=== PATIENT | male | born 1985 | race Caucasian/White ===

== ENCOUNTER 2023-03-02 07:42 | Inpatient (IN) ==
[2023-03-02] MEDS ORDERED: SODIUM CHLORIDE 0.9% 1000ML 1,000 ML IV STA (07:58)
[2023-03-02] MEDS ORDERED: MoRPHine SULFATE 4 MG/ML 1 ML CARP\\VIAL IV STA (07:58)
[2023-03-02] MEDS ORDERED: ONDANSETRON INJ 2 MG/ML 2 ML VIAL IV STA (07:58)
[2023-03-02] MEDS ORDERED: KETOROLAC TROMETHAMINE 15 MG/ML VIAL IV STA (07:58)
[2023-03-02] MEDS ORDERED: HYDROmorphone INJ 0.5 MG/0.5 ML SYR IV STA ×4 (08:10→16:52)
[2023-03-02 08:24] LABS: iSTAT Creatinine 1.1 mg/dl (0.6-1.3); iSTAT Ionized Calcium 1.17 mmol/l (1.12-1.32); iSTAT Potassium 4.1 mmol/L (3.3-5.0)
--- NOTE | 2023-03-02 08:29 | Emergency Department Note ---
ED Provider Note History of Present Illness Chief Complaint: Abdominal Pain Stated Complaint: ABDOMINAL PAIN, Time Seen by Provider: 03/02/23 07:52 37-year-old male who presents emergency department with complaint of severe central abdominal pain. The patient reports that he noticed discomfort approximately 3 hours ago, and has significantly worsened over the past 12 hours. The patient also reports nausea, vomiting and a small amount of watery diarrhea. The patient reports that any attempted fluid or food intake causes immediate vomiting. The patient denies prior history of GI issues or abdominal surgeries. He denies any other recent infections. He is unable to keep any Motrin or Tylenol down and rates his discomfort a 9 out of 10. The patient denies any urinary symptoms. Home Medications Medication Instructions Recorded Confirmed Type No Known Home Medications 03/02/23 03/02/23 History Allergies Allergy/AdvReac Type Severity Reaction Status Date / Time bee venom protein (honey bee) Allergy SWELLING Unverified 03/02/23 09:39 cat dander Allergy Hives Unverified 03/02/23 09:33 dog dander Allergy Hives Unverified 03/02/23 09:33 morphine AdvReac Hives Unverified 03/02/23 09:33 oxycodone [From OxyContin] AdvReac Hives Unverified 03/02/23 09:33 Past Med/Surg History Medical History No significant medical problems Surgical History History of hernia surgery Social History Smoking Status: Never smoker Preferred Language: Omani Feels Safe at Home: Yes Physical Exam Vital Signs Vital Signs - 24 hr 03/02/23 07:43 03/02/23 08:36 03/02/23 09:13 Temperature 36.6 C Temperature Source Temporal Artery Scan Pulse Rate 86 Pulse Rate [Finger] 78 78 Pulse Rhythm [Finger] Pulse Strength [Finger] Respiratory Rate 18 18 18 Respiratory Effort / Characteristics Non-Labored Spontaneous Respiratory Depth Normal Respiratory Pattern Regular Blood Pressure 115/80 Blood Pressure [Right Arm] 144/71 H 100/79 Blood Pressure Mean 91 Blood Pressure Mean [Right Arm] 95 86 Blood Pressure Position [Right Arm] Pulse Oximetry 98 93 96 Oxygen Delivery Method Room Air Room Air Oxygen Flow Rate Sepsis Recent Fever Within 48 Hours No Sepsis New/Unexplained Change in Mental Status N/A Sepsis Action Taken by Nursing No Action Required 03/02/23 09:44 03/02/23 10:31 03/02/23 10:48 Temperature 36.8 C Temperature Source Oral Pulse Rate 78 Pulse Rate [Finger] 80 93 H Pulse Rhythm [Finger] Regular Pulse Strength [Finger] Normal Respiratory Rate 18 18 18 Respiratory Effort / Characteristics Non-Labored Spontaneous Respiratory Depth Normal Respiratory Pattern Regular Blood Pressure 150/82 H Blood Pressure [Right Arm] 135/72 144/74 H Blood Pressure Mean Blood Pressure Mean [Right Arm] 93 97 Blood Pressure Position [Right Arm] Lying Pulse Oximetry 94 98 94 Oxygen Delivery Method Room Air Room Air Room Air Oxygen Flow Rate Sepsis Recent Fever Within 48 Hours Sepsis New/Unexplained Change in Mental Status Sepsis Action Taken by Nursing 03/02/23 12:49 03/02/23 12:55 03/02/23 13:05 Temperature 36.6 C Temperature Source Temporal Artery Scan Pulse Rate Pulse Rate [Finger] 79 81 80 Pulse Rhythm [Finger] Regular Regular Regular Pulse Strength [Finger] Normal Normal Normal Respiratory Rate 17 17 17 Respiratory Effort / Characteristics Non-Labored Spontaneous Non-Labored Spontaneous Non-Labored Spontaneous Respiratory Depth Normal Normal Normal Respiratory Pattern Regular Regular Regular Blood Pressure Blood Pressure [Right Arm] 139/81 142/81 H 167/94 H Blood Pressure Mean Blood Pressure Mean [Right Arm] 100 101 118 Blood Pressure Position [Right Arm] Semi-fowlers Semi-fowlers Semi-fowlers Pulse Oximetry 100 100 100 Oxygen Delivery Method Oxymask Oxymask Oxymask Oxygen Flow Rate 5 5 5 Sepsis Recent Fever Within 48 Hours Sepsis New/Unexplained Change in Mental Status Sepsis Action Taken by Nursing 03/02/23 13:15 03/02/23 13:25 03/02/23 13:35 Temperature Temperature Source Pulse Rate Pulse Rate [Finger] 82 85 94 H Pulse Rhythm [Finger] Regular Regular Regular Pulse Strength [Finger] Normal Normal Normal Respiratory Rate 14 15 15 Respiratory Effort / Characteristics Non-Labored Spontaneous Non-Labored Spontaneous Non-Labored Spontaneous Respiratory Depth Normal Normal Normal Respiratory Pattern Regular Regular Regular Blood Pressure Blood Pressure [Right Arm] 153/96 H 138/92 138/92 Blood Pressure Mean Blood Pressure Mean [Right Arm] 115 107 107 Blood Pressure Position [Right Arm] Semi-fowlers Semi-fowlers Semi-fowlers Pulse Oximetry 100 99 100 Oxygen Delivery Method Oxymask Oxymask Oxymask Oxygen Flow Rate 3 2 2 Sepsis Recent Fever Within 48 Hours Sepsis New/Unexplained Change in Mental Status Sepsis Action Taken by Nursing 03/02/23 13:45 03/02/23 13:55 03/02/23 14:05 Temperature Temperature Source Pulse Rate Pulse Rate [Finger] 88 94 H 98 H Pulse Rhythm [Finger] Regular Regular Regular Pulse Strength [Finger] Normal Normal Normal Respiratory Rate 14 15 15 Respiratory Effort / Characteristics Non-Labored Spontaneous Non-Labored Spontaneous Non-Labored Spontaneous Respiratory Depth Normal Normal Normal Respiratory Pattern Regular Regular Regular Blood Pressure Blood Pressure [Right Arm] 137/79 125/78 128/66 Blood Pressure Mean Blood Pressure Mean [Right Arm] 98 93 86 Blood Pressure Position [Right Arm] Semi-fowlers Semi-fowlers Semi-fowlers Pulse Oximetry 98 98 97 Oxygen Delivery Method Oxymask Nasal Cannula Nasal Cannula Oxygen Flow Rate 2 2 2 Sepsis Recent Fever Within 48 Hours Sepsis New/Unexplained Change in Mental Status Sepsis Action Taken by Nursing 03/02/23 14:15 03/02/23 14:25 03/02/23 14:35 Temperature 36.5 C 36.5 C Temperature Source Temporal Artery Scan Temporal Artery Scan Pulse Rate Pulse Rate [Finger] 91 H 92 H 92 H Pulse Rhythm [Finger] Regular Regular Regular Pulse Strength [Finger] Normal Normal Normal Respiratory Rate 13 14 14 Respiratory Effort / Characteristics Non-Labored Spontaneous Non-Labored Spontaneous Non-Labored Spontaneous Respiratory Depth Normal Normal Normal Respiratory Pattern Regular Regular Regular Blood Pressure Blood Pressure [Right Arm] 124/66 111/64 112/70 Blood Pressure Mean Blood Pressure Mean [Right Arm] 85 79 84 Blood Pressure Position [Right Arm] Semi-fowlers Semi-fowlers Semi-fowlers Pulse Oximetry 95 96 96 Oxygen Delivery Method Nasal Cannula Nasal Cannula Nasal Cannula Oxygen Flow Rate 2 2 2 Sepsis Recent Fever Within 48 Hours Sepsis New/Unexplained Change in Mental Status Sepsis Action Taken by Nursing CONSTITUTIONAL: Healthy and well nourished. Alert and oriented X 3. Patient appears in severe discomfort. HEENT: No scleral icterus or conjunctival injection/pallor. Mucous membranes are dry. RESPIRATORY: Clear to auscultation bilaterally with no wheezing, crackles, rhonchi or stridor. CARDIOVASCULAR: Regular rate and rhythm with no murmurs, rubs or gallops. GASTROINTESTINAL: Bowel sounds present in all quadrants. Patient has notable central abdominal tenderness to palpation, with other generalized tenderness to palpation throughout the entire abdominal region. Negative CVA tenderness. No abdominal rigidity or rebound. INTEGUMENTARY: No rash or other significant dermatologic conditions noted. HEMATOLOGIC: No ecchymosis or petechiae. PSYCHIATRIC: Positive affect. NEUROLOGIC: No focal neurologic deficits noted. Course Course Patient history and physical exam were performed. Nurses notes were reviewed. Vital signs were reviewed and were normal. IV access was established, and labs were drawn. The patient was hydrated with a liter normal saline, and administered IV Dilaudid and Zofran for pain. Review of labs shows a moderate leukocytosis with left shift. CMP was otherwise grossly normal. LFTs and lipase were normal. Lactate level was also normal. Urinalysis does not show evidence for hematuria or signs of infection. COVID-[address] with IV contrast of the abdomen and pelvis shows a high-grade small bowel obstruction, with a concerning 1.8 cm soft tissue mass at the transition site. The patient did require multiple rounds of IV Dilaudid because of persistent pain. The case was also discussed with Dr. Gaming, ED team physician, who recommended surgical consultation. The case was then further discussed with Dr. Darryl Chan, general surgeon on-call, who came to the emergency department and will take the patient to the OR for further surgical evaluation. Please see his dictation for further treatment and final disposition. Administered Medications Discontinued Medications Hydromorphone HCl (Hydromorphone Inj 0.5 Mg/0.5 Ml Syr) 0.5 mg IV NOW STA Stop: 03/02/23 08:11 Last Admin: 03/02/23 08:18 Dose: 0.5 mg Documented By: MARGOT Hydromorphone HCl (Hydromorphone Inj 0.5 Mg/0.5 Ml Syr) 0.5 mg IV NOW STA Stop: 03/02/23 08:44 Last Admin: 03/02/23 08:48 Dose: 0.5 mg Documented By: MARGOT Hydromorphone HCl (Hydromorphone Inj 0.5 Mg/0.5 Ml Syr) 0.5 mg IV NOW STA Stop: 03/02/23 09:05 Last Admin: 03/02/23 09:09 Dose: 0.5 mg Documented By: MARGOT Hydromorphone HCl (Hydromorphone Inj 1 Mg/Ml Syringe) 0.25 mg IV Q5M PRN PRN Reason: PACU Use Only-Pain Stop: 03/02/23 19:16 Last Admin: 03/02/23 14:11 Dose: 0.25 mg Documented By: Admin: 03/02/23 14:06 Dose: 0.25 mg Documented By: Admin: 03/02/23 14:01 Dose: 0.25 mg Documented By: Admin: 03/02/23 13:56 Dose: 0.25 mg Documented By: Admin: 03/02/23 13:51 Dose: 0.25 mg Documented By: Admin: 03/02/23 13:46 Dose: 0.25 mg Documented By: Admin: 03/02/23 13:41 Dose: 0.25 mg Documented By: Admin: 03/02/23 13:36 Dose: 0.25 mg Documented By: Admin: 03/02/23 13:31 Dose: 0.25 mg Documented By: Admin: 03/02/23 13:26 Dose: 0.25 mg Documented By: Admin: 03/02/23 13:21 Dose: 0.25 mg Documented By: Admin: 03/02/23 13:16 Dose: 0.25 mg Documented By: Admin: 03/02/23 13:11 Dose: 0.25 mg Documented By: Admin: 03/02/23 13:06 Dose: 0.25 mg Documented By: Admin: 03/02/23 13:01 Dose: 0.25 mg Documented By: Admin: 03/02/23 12:56 Dose: 0.25 mg Documented By: GRUPO Sodium Chloride (Nss 1000ml) 1,000 mls @ 999 mls/hr IV .Q1H1M STA Stop: 03/02/23 08:58 Last Infusion: 03/02/23 09:31 Dose: 0 mls/hr Documented By: Admin: 03/02/23 08:19 Dose: 999 mls/hr Documented By: MARGOT Cefoxitin Sodium 2,000 mg/ (Dextrose) 60 mls @ 100 mls/hr IV ONE STA Stop: 03/02/23 11:29 Last Admin: 03/02/23 11:19 Dose: 100 mls/hr Documented By: MATT Ioversol (Optiray 350 100ml) 89 ml IV ONCE ONE Stop: 03/02/23 08:34 Last Admin: 03/02/23 08:33 Dose: 89 ml Documented By: POWER Ketorolac Tromethamine (Ketorolac Tromethamine 15 Mg/Ml Vial) 10 mg IV NOW STA Stop: 03/02/23 07:59 Last Admin: 03/02/23 08:18 Dose: 10 mg Documented By: MARGOT Ketorolac Tromethamine (Ketorolac 30 Mg/Ml Vial) 30 mg IV ONCE PRN PRN Reason: PACU Use Only-Pain Stop: 03/02/23 19:16 Last Admin: 03/02/23 12:56 Dose: 30 mg Documented By: GRUPO Meperidine HCl (Meperidine Hcl 25 Mg/Ml Carp/Vial) 25 mg IV Q5M PRN PRN Reason: Surgi Pain/Chills/Rigors Stop: 03/02/23 19:16 Last Admin: 03/02/23 13:25 Dose: 25 mg Documented By: GRUPO Morphine Sulfate (Morphine Sulfate 4 Mg/Ml 1 Ml Carp\Vial) 6 mg IV NOW STA Stop: 03/02/23 07:59 Last Admin: 03/02/23 08:19 Dose: Not Given Documented By: MARGOT Ondansetron HCl (Ondansetron Inj 2 Mg/Ml 2 Ml Vial) 4 mg IV NOW STA Stop: 03/02/23 07:59 Last Admin: 03/02/23 08:18 Dose: 4 mg Documented By: MARGOT Medical Decision Making Medical Records Attestation: I reviewed the patient's medical records. Home Medications was personally reviewed by me Laboratory Data Attestation: I reviewed the patient's lab results. 03/02/23 08:00 03/02/23 08:00 Lab Results 03/02/23 03/02/23 03/02/23 Range/Units 07:50 08:00 08:00 WBC 14.84 H (4.8-10.8) K/ul RBC 6.01 (4.70-6.10) M/uL Hgb 18.0 (14.0-18.0) g/dl POC Hgb (14.0-18.0) g/dl Hct 52.9 H (42.0-52.0) % POC Hct (42-52) % MCV 88.0 (80.0-100.0) fL MCH 30.0 (25.0-34.0) pg MCHC 34.0 (32.0-36.0) g/dL RDW Std Deviation 40.5 (36.4-46.3) fL RDW Coeff of Rafaela 12.5 (11.5-14.5) % Plt Count 263 (130-400) K/uL MPV 10.5 (9.4-12.4) fL Immature Gran % (Auto) 0.7 % Neut % (Auto) 85.8 % Lymph % (Auto) 6.5 % Meade % (Auto) 6.3 % Eos % (Auto) 0.4 % Baso % (Auto) 0.3 % Neut # (Auto) 12.74 H (1.40-6.50) K/uL Lymph # (Auto) 0.96 L (1.2-3.4) K/uL Meade # (Auto) 0.94 H (0.11-0.59) K/uL Eos # (Auto) 0.06 (0-0.50) K/uL Baso # (Auto) 0.04 (0-0.2) K/uL Immature Gran # (Auto) 0.10 (0.01-0.20) K/uL POC Sodium (135-144) mmol/L Sodium 137 (136-145) mmol/L POC Potassium (3.3-5.0) mmol/L Potassium 4.2 (3.5-5.1) mmol/L POC Chloride (101-112) mmol/L Chloride 97 L (98-107) mmol/L Carbon Dioxide 32 (21-32) mmol/L POC Total CO2 (24-31) mmol/L Anion Gap 8 (3-11) POC Anion Gap (16-25) mmol/L POC BUN (7-18) mg/dl BUN 15 (6-23) mg/dl Creatinine 1.13 (0.6-1.4) mg/dl POC Creatinine (0.6-1.3) mg/dl Est Cr Clr Drug Dosing 110.9 ml/min Est GFR ( Amer) 97.1 ml/min Est GFR (Non-Af Amer) 83.7 ml/min BUN/Creatinine Ratio 13.3 (10-20) Glucose 103 H (70-99(Fasting)) mg/dl POC Glucose (other) (70-99) mg/dl Lactate (0.4-2.0) mmol/L Calcium 9.9 (8.6-10.3) mg/dl POC Ioniz Calcium Tin (1.12-1.32) mmol/l Total Bilirubin 1.0 (0.2-1.0) mg/dl AST 20 (13-39) U/L ALT 21 (7-52) U/L Alkaline Phosphatase 59 (34-104) U/L Total Protein 8.1 (6.0-8.3) gm/dl Albumin 4.9 (3.4-5.0) gm/dl Globulin 3.2 (2.5-4.0) gm/dl Albumin/Globulin Ratio 1.5 (0.9-2) Lipase 14 (11-82) U/L Urine Color Dark Yellow Urine Appearance Turbid A (Clear) Urine pH >= 9.0 H (4.5-7.5) Ur Specific [place] 1.027 (1.000-1.030) Urine Protein 1+ H (Negative) Urine Glucose (UA) Negative (Negative) Urine Ketones Negative (Negative) Urine Blood Negative (Negative) Urine Nitrite Negative (Negative) Urine Bilirubin Negative (Negative) Urine Urobilinogen Negative (Negative) Ur Leukocyte Esterase Trace H (Negative) Urine WBC (Auto) 0 (0-5) /hpf Urine RBC (Auto) 0-4 (0-4) /hpf U Hyaline Cast (Auto) 1-5 (0-5) /lpf U Epithel Cells (Auto) 10-20 H (0-5) /lpf Urine Bacteria (Auto) Negative (Negative) SARS-CoV-2, RNA, NAAT (NEGATIVE) 03/02/23 03/02/23 03/02/23 Range/Units 08:10 09:00 09:10 WBC (4.8-10.8) K/ul RBC (4.70-6.10) M/uL Hgb (14.0-18.0) g/dl POC Hgb 19.0 H (14.0-18.0) g/dl Hct (42.0-52.0) % POC Hct 56 H (42-52) % MCV (80.0-100.0) fL MCH (25.0-34.0) pg MCHC (32.0-36.0) g/dL RDW Std Deviation (36.4-46.3) fL RDW Coeff of Rafaela (11.5-14.5) % Plt Count (130-400) K/uL MPV (9.4-12.4) fL Immature Gran % (Auto) % Neut % (Auto) % Lymph % (Auto) % [place] % (Auto) % Eos % (Auto) % Baso % (Auto) % Neut # (Auto) (1.40-6.50) K/uL Lymph # (Auto) (1.2-3.4) K/uL [place]ade # (Auto) (0.11-0.59) K/uL Eos # (Auto) (0-0.50) K/uL Baso # (Auto) (0-0.2) K/uL Immature Gran # (Auto) (0.01-0.20) K/uL POC Sodium 139 (135-144) mmol/L Sodium (136-145) mmol/L POC Potassium 4.1 (3.3-5.0) mmol/L Potassium (3.5-5.1) mmol/L POC Chloride 95 L (101-112) mmol/L Chloride (98-107) mmol/L Carbon Dioxide (21-32) mmol/L POC Total CO2 31 (24-31) mmol/L Anion Gap (3-11) POC Anion Gap 19.0 (16-25) mmol/L POC BUN 16 (7-18) mg/dl BUN (6-23) mg/dl Creatinine (0.6-1.4) mg/dl POC Creatinine 1.1 (0.6-1.3) mg/dl Est Cr Clr Drug Dosing ml/min Est GFR ( Amer) ml/min Est GFR (Non-Af Amer) ml/min BUN/Creatinine Ratio (10-20) Glucose (70-99(Fasting)) mg/dl POC Glucose (other) 114 H (70-99) mg/dl Lactate 1.1 (0.4-2.0) mmol/L Calcium (8.6-10.3) mg/dl POC Ioniz Calcium Tin 1.17 (1.12-1.32) mmol/l Total Bilirubin (0.2-1.0) mg/dl AST (13-39) U/L ALT (7-52) U/L Alkaline Phosphatase (34-104) U/L Total Protein (6.0-8.3) gm/dl Albumin (3.4-5.0) gm/dl Globulin (2.5-4.0) gm/dl Albumin/Globulin Ratio (0.9-2) Lipase (11-82) U/L Urine Color Urine Appearance (Clear) Urine pH (4.5-7.5) Ur Specific [place] (1.000-1.030) Urine Protein (Negative) Urine Glucose (UA) (Negative) Urine Ketones (Negative) Urine Blood (Negative) Urine Nitrite (Negative) Urine Bilirubin (Negative) Urine Urobilinogen (Negative) Ur Leukocyte Esterase (Negative) Urine WBC (Auto) (0-5) /hpf Urine RBC (Auto) (0-4) /hpf U Hyaline Cast (Auto) (0-5) /lpf U Epithel Cells (Auto) (0-5) /lpf Urine Bacteria (Auto) (Negative) SARS-CoV-2, RNA, NAAT NEGATIVE (NEGATIVE) Imaging Data Attestation: I personally reviewed and interpreted this imaging study as follows: My Impression: My interpretation of the CT with IV contrast of the abdomen and pelvis shows evidence for high-grade small bowel obstruction, with transition point within the middle of the abdomen. Radiologist also is concerned for a 1.8 cm soft tissue density within the central mesentery, possibly representing a decompressed loop of small bowel or possibly a small bowel mass. No abdominal free air or appendicitis appreciated. Radiologist report was also reviewed with concurrence. Radiologist's Impression: Abdomen/Pelvis CT 03/02/23 07:[address] WITH IV CONTRAST CT DOSE: 533.52 mGy.cm HISTORY: Severe central abd pain x 12h TECHNIQUE: Multiaxial CT images of the abdomen and pelvis were performed f ollowing the use of intravenous contrast. A dose lowering technique was utilized adhering to the principles of ALARA. COMPARISON STUDY: None. FINDINGS: The lung bases are clear. No pneumoperitoneum. No pneumatosis. No acute fractures identified. The gallbladder is contracted but appears unremarkable. The main portal vein is patent. The liver, spleen, adrenal glands, pancreas, and kidneys are unremarkable. No hydronephrosis. Normal caliber abdo darryn aorta. No retroperitoneal lymphadenopathy. No pelvic lymphadenopathy or pelvic free fluid. The bladder is not well-distended but appears unremarkable. The distal small bowel loops and colon are decompressed. Normal appendix. The gastric antrum and duodenum are decompressed. There are multiple dilated gas and fluid-filled loops of proximal to mid small bowel seen within the abdomen. These measure up to 4 cm in diameter. There is an apparent transition point within the mid abdomen on image 296. Therefore, these findings are consistent with a small bowel obstruction. Focal soft tissue density within the central mesentery on image 276 which measures approximately 1.8 cm. This could represent a decompressed loop of small bowel. However, a small bowel mass could also have a similar appearance and could represent the site of obstruction. IMPRESSION: 1. High-grade small bowel obstruction with the transition point likely located within the midabdomen at the level of the jejunum. 2. There is a 1.8 cm soft tissue density within the central mesentery which could represent a decompressed loop of small bowel or possibly a small bowel mass which is located at or near the transition point. This could represent the site of obstruction. ACT 112: Negative or not required by law. Electronically signed by: Geoff Villa M.D. 03/02/2023 9:06 AM MDM Narrative See ED Course section for further details of today's visit. The patient presen ts to the emergency department with complaint of severe central abdominal pain with nausea, vomiting and small amount of diarrhea. The patient's symptoms have been worsening over the past [address] imaging today does show a high-grade small bowel obstruction, with concerning 1.8 cm soft tissue mass at the transition site. Consultation was placed with general surgery, who will take the patient to the OR for further evaluation. The patient is afebrile. Lactate level was also normal. Laboratory studies are not suggestive of UTI, pancreatitis, cholecystitis or hepatitis. No appendicitis or abdominal free air are noted on CT imaging. Impression Small bowel obstruction, Nausea and vomiting, History of inguinal herniorrhaphy Discharge Plan Visit Data Chief Complaint: Abdominal Pain Stated Complaint: ABDOMINAL PAIN, ED Provider: Elijah Gaming ED Midlevel Provider: Bandar Aden Discharge Problem: Small bowel obstruction, Nausea and vomiting, History of inguinal herniorrhaphy Patient Disposition: Admitted As Inpatient Discharge Instructions Interventions: ED Discharge Assessment Last Done: 03/02/23 10:31 Nausea and vomiting Qualifiers: Vomiting type: unspecified Qualified Code(s): R11.2 - Nausea with vomiting, unspecified
[2023-03-02 08:31] LABS: Basophils # (auto) 0.04 K/uL (0-0.2); Basophils % (auto) 0.3 %; Eosinophils # (auto) 0.06 K/uL (0-0.50); Eosinophils % (auto) 0.4 %; Hematocrit (blood only) 52.9 % (42.0-52.0); Immature Granulocytes % (auto) 0.7 %; Lymphocytes # (auto) 0.96 K/uL (1.2-3.4); Lymphocytes % (auto) 6.5 %; Mean Platelet Volume 10.5 fL (9.4-12.4); Monocytes # (auto) 0.94 K/uL (0.11-0.59); Monocytes % (auto) 6.3 %; Neutrophils # (auto) 12.74 K/uL (1.40-6.50); Neutrophils % (auto) 85.8 %; Platelet Count 263 K/uL (130-400); RDW Coefficient of Variation 12.5 % (11.5-14.5); RDW Standard Deviation 40.5 fL (36.4-46.3); Red Blood Count 6.01 M/uL (4.70-6.10); White Blood Count 14.84 K/ul (4.8-10.8)
[2023-03-02] MEDS ORDERED: OPTIRAY 350 100ml IV ONE (08:33)
[2023-03-02 08:39] LABS: Appearance Urine Turbid (Clear); Bacteria Urine Automated Negative (Negative); Bilirubin Urine Negative (Negative); Blood Urine Negative (Negative); Color Urine Dark Yellow; Glucose Urine UA Negative (Negative); Ketones Urine Negative (Negative); Leukocyte Esterase Urine Trace (Negative); Nitrite Urine Negative (Negative); RBC Urine Automated 0-4 /hpf (0-4); Specific Gravity Urine 1.027 (1.000-1.030); Urobilinogen Urine Negative (Negative); WBC Urine Automated 0 /hpf (0-5); pH Urine >= 9.0 (4.5-7.5)
[2023-03-02 08:41] LABS: Albumin Globulin Ratio 1.5 (0.9-2); Albumin Level 4.9 gm/dl (3.4-5.0); BUN Creatinine Ratio 13.3 (10-20); Calcium 9.9 mg/dl (8.6-10.3); Creatinine Clr Calc Pharmacy 110.9 ml/min; Est GFR (African American) 97.1 ml/min; Est GFR (Non-African American) 83.7 ml/min; Globulin 3.2 gm/dl (2.5-4.0); Potassium 4.2 mmol/L (3.5-5.1); Total Protein 8.1 gm/dl (6.0-8.3)
[2023-03-02 08:49] LABS: Protein Urine 1+ (Negative)
--- NOTE | 2023-03-02 08:56 | CT Scan Report ---
ABDOMEN AND PELVIS CT WITH IV CONTRAST CT DOSE: 533.52 mGy.cm HISTORY: Severe central abd pain x 12h TECHNIQUE: Multiaxial CT images of the abdomen and pelvis were performed following the use of intrave nous contrast. A dose lowering technique was utilized adhering to the principles of ALARA. COMPARISON STUDY: None. FINDINGS: The lung bases are clear. No pneumoperitoneum. No pneumatosis. No acute fractures identifie d. The gallbladder is contracted but appears unremarkable. The main portal vein is patent. The liver, spleen, adrenal glands, pancreas, and kidneys are unremarkable. No hydronephrosis. Normal caliber ab dominal aorta. No retroperitoneal lymphadenopathy. No pelvic lymphadenopathy or pelvic free fluid. Th e bladder is not well-distended but appears unremarkable. The distal small bowel loops and colon are decompressed. Normal appendix. The gastric antrum and duodenum are decompressed. There are multiple d ilated gas and fluid-filled loops of proximal to mid small bowel seen within the abdomen. These measu re up to 4 cm in diameter. There is an apparent transition point within the mid abdomen on image 296. Therefore, these findings are consistent with a small bowel obstruction. Focal soft tissue density w ithin the central mesentery on image 276 which measures approximately 1.8 cm. This could represent a decompressed loop of small bowel. However, a small bowel mass could also have a similar appearance an d could represent the site of obstruction. IMPRESSION: 1. High-grade small bowel obstruction with the transition point likely located within the midabdomen at the level of the jejunum. 2. There is a 1.8 cm soft tissue density within the central mesentery which could represent a decompr essed loop of small bowel or possibly a small bowel mass which is located at or near the transition p oint. This could represent the site of obstruction. ACT 112: Negative or not required by law. Electronically signed by: Geoff Villa M.D. 03/02/2023 9:06 AM
--- NOTE | 2023-03-02 10:31 | History & Physical Report ---
Date of Service March 02, 2023 History of Present Illness Primary Care Provider: James Wright DO 37-year-old gentleman presents with 24-hour history of severe abdominal pain centered around his periumbilical region. This was accompanied with nausea and vomiting. He denies any history of pain in this location previously. The pain has been worsening. It is sharp in character. He has had a prior open inguinal hernia repair. He denies fevers or chills. Last bowel movement was watery diarrhea yesterday. Denies passing flatus. CT scan demonstrates high-grade small bowel obstruction, possible soft tissue mass, possible internal hernia. Allergies Allergy/AdvReac Type Severity Reaction Status Date / Time bee venom protein (honey bee) Allergy SWELLING Unverified 03/02/23 09:39 cat dander Allergy Hives Unverified 03/02/23 09:33 dog dander Allergy Hives Unverified 03/02/23 09:33 morphine AdvReac Hives Unverified 03/02/23 09:33 oxycodone [From OxyContin] AdvReac Hives Unverified 03/02/23 09:33 Home Medications Medication Instructions Recorded Confirmed Type No Known Home Medications 03/02/23 03/02/23 History Past Med/Surg History Social History Smoking Status: Never smoker Preferred Language: Sinhala Feels Safe at Home: Yes Review of Systems Review of Systems: All systems reviewed & are unremarkable except as noted in HPI & below Physical Exam Constitutional: WD/WN, vitals as above + ill appearing Eyes: PERRL, conjunctivae normal, anicteric sclerae Neck: trachea midline, no thyromegaly Respiratory: normal respiratory effort; no respiratory distress and no labored breathing Cardiovascular: Rate/Rhythm: regular rate and regular rhythm Gastrointestinal (Abdomen): Inspection/Auscultation: abdomen normal to inspection, + abdomen distended and + hypoactive bowel sounds Percussion/Palpation: + abdomen tender (Diffusely, severe tenderness to palpation), + guarding (Voluntary, all quadrants) and abdomen soft; abdomen not rigid Skin: no rashes, warm and dry Psychiatric: A+Ox3, euthymic affect Results & Data Results & Data Vital Signs (Past 12 Hours) Vital Signs Temp Pulse Pulse Resp BP BP Pulse Ox 03/02/23 09:44 80 18 135/72 94 03/02/23 09:13 78 18 100/79 96 03/02/23 08:36 78 18 144/71 H 93 03/02/23 07:43 36.6 C 86 18 115/80 98 O2 Del Method 03/02/23 09:44 Room Air 03/02/23 09:13 Room Air 03/02/23 08:36 Room Air 03/02/23 07:43 Laboratory Results 03/02/23 03/02/23 03/02/23 Range/Units 09:10 09:00 08:10 WBC (4.8-10.8) K/ul RBC (4.70-6.10) M/uL Hgb (14.0-18.0) g/dl POC Hgb 19.0 H (14.0-18.0) g/dl Hct (42.0-52.0) % POC Hct 56 H (42-52) % MCV (80.0-100.0) fL MCH (25.0-34.0) pg MCHC (32.0-36.0) g/dL RDW Std Deviation (36.4-46.3) fL RDW Coeff of Rafaela (11.5-14.5) % Plt Count (130-400) K/uL MPV (9.4-12.4) fL Immature Gran % (Auto) % Neut % (Auto) % Lymph % (Auto) % Phillips % (Auto) % Eos % (Auto) % Baso % (Auto) % Neut # (Auto) (1.40-6.50) K/uL Lymph # (Auto) (1.2-3.4) K/uL Phillips # (Auto) (0.11-0.59) K/uL Eos # (Auto) (0-0.50) K/uL Baso # (Auto) (0-0.2) K/uL Immature Gran # (Auto) (0.01-0.20) K/uL POC Sodium 139 (135-144) mmol/L Sodium (136-145) mmol/L POC Potassium 4.1 (3.3-5.0) mmol/L Potassium (3.5-5.1) mmol/L POC Chloride 95 L (101-112) mmol/L Chloride (98-107) mmol/L Carbon Dioxide (21-32) mmol/L POC Total CO2 31 (24-31) mmol/L Anion Gap (3-11) POC Anion Gap 19.0 (16-25) mmol/L POC BUN 16 (7-18) mg/dl BUN (6-23) mg/dl Creatinine (0.6-1.4) mg/dl POC Creatinine 1.1 (0.6-1.3) mg/dl Est Cr Clr Drug Dosing ml/min Est GFR ( Amer) ml/min Est GFR (Non-Af Amer) ml/min BUN/Creatinine Ratio (10-20) Glucose (70-99(Fasting)) mg/dl POC Glucose (other) 114 H (70-99) mg/dl Lactate 1.1 (0.4-2.0) mmol/L Calcium (8.6-10.3) mg/dl POC Ioniz Calcium Tin 1.17 (1.12-1.32) mmol/l Total Bilirubin (0.2-1.0) mg/dl AST (13-39) U/L ALT (7-52) U/L Alkaline Phosphatase (34-104) U/L Total Protein (6.0-8.3) gm/dl Albumin (3.4-5.0) gm/dl Globulin (2.5-4.0) gm/dl Albumin/Globulin Ratio (0.9-2) Lipase (11-82) U/L Urine Color Urine Appearance (Clear) Urine pH (4.5-7.5) Ur Specific [place] (1.000-1.030) Urine Protein (Negative) Urine Glucose (UA) (Negative) Urine Ketones (Negative) Urine Blood (Negative) Urine Nitrite (Negative) Urine Bilirubin (Negative) Urine Urobilinogen (Negative) Ur Leukocyte Esterase (Negative) Urine WBC (Auto) (0-5) /hpf Urine RBC (Auto) (0-4) /hpf U Hyaline Cast (Auto) (0-5) /lpf U Epithel Cells (Auto) (0-5) /lpf Urine Bacteria (Auto) (Negative) SARS-CoV-2, RNA, NAAT NEGATIVE (NEGATIVE) 03/02/23 03/02/23 03/02/23 Range/Units 08:00 08:00 07:50 WBC 14.84 H (4.8-10.8) K/ul RBC 6.01 (4.70-6.10) M/uL Hgb 18.0 (14.0-18.0) g/dl POC Hgb (14.0-18.0) g/dl Hct 52.9 H (42.0-52.0) % POC Hct (42-52) % MCV 88.0 (80.0-100.0) fL MCH 30.0 (25.0-34.0) pg MCHC 34.0 (32.0-36.0) g/dL RDW Std Deviation 40.5 (36.4-46.3) fL RDW Coeff of Rafaela 12.5 (11.5-14.5) % Plt Count 263 (130-400) K/uL MPV 10.5 (9.4-12.4) fL Immature Gran % (Auto) 0.7 % Neut % (Auto) 85.8 % Lymph % (Auto) 6.5 % Phillips % (Auto) 6.3 % Eos % (Auto) 0.4 % Baso % (Auto) 0.3 % Neut # (Auto) 12.74 H (1.40-6.50) K/uL Lymph # (Auto) 0.96 L (1.2-3.4) K/uL Phillips # (Auto) 0.94 H (0.11-0.59) K/uL Eos # (Auto) 0.06 (0-0.50) K/uL Baso # (Auto) 0.04 (0-0.2) K/uL Immature Gran # (Auto) 0.10 (0.01-0.20) K/uL POC Sodium (135-144) mmol/L Sodium 137 (136-145) mmol/L POC Potassium (3.3-5.0) mmol/L Potassium 4.2 (3.5-5.1) mmol/L POC Chloride (101-112) mmol/L Chloride 97 L (98-107) mmol/L Carbon Dioxide 32 (21-32) mmol/L POC Total CO2 (24-31) mmol/L Anion Gap 8 (3-11) POC Anion Gap (16-25) mmol/L POC BUN (7-18) mg/dl BUN 15 (6-23) mg/dl Creatinine 1.13 (0.6-1.4) mg/dl POC Creatinine (0.6-1.3) mg/dl Est Cr Clr Drug Dosing 110.9 ml/min Est GFR ( Amer) 97.1 ml/min Est GFR (Non-Af Amer) 83.7 ml/min BUN/Creatinine Ratio 13.3 (10-20) Glucose 103 H (70-99(Fasting)) mg/dl POC Glucose (other) (70-99) mg/dl Lactate (0.4-2.0) mmol/L Calcium 9.9 (8.6-10.3) mg/dl POC Ioniz Calcium Tin (1.12-1.32) mmol/l Total Bilirubin 1.0 (0.2-1.0) mg/dl AST 20 (13-39) U/L ALT 21 (7-52) U/L Alkaline Phosphatase 59 (34-104) U/L Total Protein 8.1 (6.0-8.3) gm/dl Albumin 4.9 (3.4-5.0) gm/dl Globulin 3.2 (2.5-4.0) gm/dl Albumin/Globulin Ratio 1.5 (0.9-2) Lipase 14 (11-82) U/L Urine Color Dark Yellow Urine Appearance Turbid A (Clear) Urine pH >= 9.0 H (4.5-7.5) Ur Specific [place] 1.027 (1.000-1.030) Urine Protein 1+ H (Negative) Urine Glucose (UA) Negative (Negative) Urine Ketones Negative (Negative) Urine Blood Negative (Negative) Urine Nitrite Negative (Negative) Urine Bilirubin Negative (Negative) Urine Urobilinogen Negative (Negative) Ur Leukocyte Esterase Trace H (Negative) Urine WBC (Auto) 0 (0-5) /hpf Urine RBC (Auto) 0-4 (0-4) /hpf U Hyaline Cast (Auto) 1-5 (0-5) /lpf U Epithel Cells (Auto) 10-20 H (0-5) /lpf Urine Bacteria (Auto) Negative (Negative) SARS-CoV-2, RNA, NAAT (NEGATIVE) Diagnostic Findings ABDOMEN AND PELVIS CT WITH IV CONTRAST CT DOSE: 533.52 mGy.cm HISTORY: Severe central abd pain x 12h TECHNIQUE: Multiaxial CT images of the abdomen and pelvis were performed following the use of intravenous contrast. A dose lowering technique was utilized adhering to the principles of ALARA. COMPARISON STUDY: None. FINDINGS: The lung bases are clear. No pneumoperitoneum. No pneumatosis. No acute fractures identified. The gallbladder is contracted but appears unremarkable. The main portal vein is patent. The liver, spleen, adrenal glands, pancreas, and kidneys are unremarkable. No hydronephrosis. Normal caliber abdominal aorta. No retroperitoneal lymphadenopathy. No pelvic lymphadenopathy or pelvic free fluid. The bladder is not well-distended but appears unremarkable. The distal small bowel loops and colon are decompressed. Normal appendix. The gastric antrum and duodenum are decompressed. There are multiple dilated gas and fluid-filled loops of proximal to mid small bowel seen within the abdomen. These measure up to 4 cm in diameter. There is an apparent transition point within the mid abdomen on image 296. Therefore, these findings are consistent with a small bowel obstruction. Focal soft tissue density within the central mesentery on image 276 which measures approximately 1.8 cm. This could represent a decompressed loop of small bowel. However, a small bowel mass could also have a similar appearance and could represent the site of obs truction. IMPRESSION: 1. High-grade small bowel obstruction with the transition point likely located within the midabdomen at the level of the jejunum. 2. There is a 1.8 cm soft tissue density within the central mesentery which could represent a decompressed loop of small bowel or possibly a small bowel mass which is located at or near the transition point. This could represent the site of obstruction.
[2023-03-02] MEDS ORDERED: fentaNYL citrate PF 100 MCG/2 ML VIAL ONE ×2 (10:35→12:32)
[2023-03-02] MEDS ORDERED: MIDAZOLAM HCL 1 MG/ML 2ML VIAL ONE (10:35)
[2023-03-02] MEDS ORDERED: cefOXitin 2,000 MG in DEXTROSE 5% 50 ML IV STA (10:54)
--- NOTE | 2023-03-02 10:58 | Anesthesiology Consultation ---
Date of Service March 02, 2023 Assessment & Plan (1) Encounter for pre-operative examination: Chart Review Chart Review: Acceptable Risk for Surgery History Surgery Operation Date: 03/02/23 10:10 Proposed Procedures p Exploratory Laparotomy, Lysis of Adhesions, Possible Bowel Resection - Darryl Chan MD Height/Weight Height: 5 ft 11 in Weight: 101.9 kg Allergies Allergy/AdvReac Type Severity Reaction Status Date / Time bee venom protein (honey bee) Allergy SWELLING Unverified 03/02/23 09:39 cat dander Allergy Hives Unverified 03/02/23 09:33 dog dander Allergy Hives Unverified 03/02/23 09:33 morphine AdvReac Hives Unverified 03/02/23 09:33 oxycodone [From OxyContin] AdvReac Hives Unverified 03/02/23 09:33 Medications Home Medications Medication Instructions Recorded Confirmed Last Taken No Known Home Medications 03/02/23 03/02/23 Unknown NPO Date Last Intake of Fluids: 03/01/23 Time Last Intake of Fluids: 23:59 Last Intake of Fluids Comment: vomited this am Date Last Intake of Solids: 03/01/23 Last Intake of Solids Comment: vomited this am Exercise / Class Metabolic Activity 1 > 8 Run/Swim/Ski/Tennis Past Anesthesia History No Hx of Anesthesia Complications History of PONV No Hx of PONV and No Hx of Motion Sickness Social History Smoking Status: Never smoker Physical Exam Vital Signs Last Vital Signs Temp 36.8 C 03/02/23 10:48 Pulse 93 H 03/02/23 10:48 Resp 18 03/02/23 10:48 BP 144/74 H 03/02/23 10:48 Pulse Ox 94 03/02/23 10:48 O2 Del Method Room Air 03/02/23 10:48 Testing Laboratory Results 03/02/23 08:00 03/02/23 08:00 Urine Color Dark Yellow 03/02/23 07:50 Urine Appearance Turbid (Clear) A 03/02/23 07:50 Urine pH >= 9.0 (4.5-7.5) H 03/02/23 07:50 Ur Specific [place] 1.027 (1.000-1.030) 03/02/23 07:50 Urine Protein 1+ (Negative) H 03/02/23 07:50 Urine Glucose (UA) Negative (Negative) 03/02/23 07:50 Urine Ketones Negative (Negative) 03/02/23 07:50 Urine Nitrite Negative (Negative) 03/02/23 07:50 Ur Leukocyte Esterase Trace (Negative) H 03/02/23 07:50 Urine WBC (Auto) 0 /hpf (0-5) 03/02/23 07:50 Urine RBC (Auto) 0-4 /hpf (0-4) 03/02/23 07:50 U Hyaline Cast (Auto) 1-5 /lpf (0-5) 03/02/23 07:50 U Epithel Cells (Auto) 10-20 /lpf (0-5) H 03/02/23 07:50 Urine Bacteria (Auto) Negative (Negative) 03/02/23 07:50 03/02/23 08:10 POC Glucose (other) 114 H
--- NOTE | 2023-03-02 11:15 | Anesthesiology Consultation ---
Date of Service March 02, 2023 Assessment & Plan (1) Encounter for pre-operative examination: Chart Review Chart Review: Acceptable Risk for Surgery History Surgery Operation Date: 03/02/23 10:10 Proposed Procedures p Exploratory Laparotomy, Lysis of Adhesions, Possible Bowel Resection - Darryl Chan MD Height/Weight Height: 5 ft 11 in Weight: 101.9 kg Allergies Allergy/AdvReac Type Severity Reaction Status Date / Time bee venom protein (honey bee) Allergy SWELLING Unverified 03/02/23 09:39 cat dander Allergy Hives Unverified 03/02/23 09:33 dog dander Allergy Hives Unverified 03/02/23 09:33 morphine AdvReac Hives Unverified 03/02/23 09:33 oxycodone [From OxyContin] AdvReac Hives Unverified 03/02/23 09:33 Medications Home Medications Medication Instructions Recorded Confirmed Last Taken No Known Home Medications 03/02/23 03/02/23 Unknown NPO Date Last Intake of Fluids: 03/01/23 Time Last Intake of Fluids: 23:59 Last Intake of Fluids Comment: vomited this am Date Last Intake of Solids: 03/01/23 Last Intake of Solids Comment: vomited this am Past Medical History Medical History (Updated 03/02/23 @ 11:12 by Tony Serrano MD) No significant medical problems Past Surgical History Surgical History (Updated 03/02/23 @ 11:13 by Tony Serrano MD) History of hernia surgery Social History Smoking Status: Never smoker Physical Exam Vital Signs Last Vital Signs Temp 36.8 C 03/02/23 10:48 Pulse 93 H 03/02/23 10:48 Resp 18 03/02/23 10:48 BP 144/74 H 03/02/23 10:48 Pulse Ox 94 03/02/23 10:48 O2 Del Method Room Air 03/02/23 10:48 Testing Laboratory Results 03/02/23 08:00 03/02/23 08:00 Urine Color Dark Yellow 03/02/23 07:50 Urine Appearance Turbid (Clear) A 03/02/23 07:50 Urine pH >= 9.0 (4.5-7.5) H 03/02/23 07:50 Ur Specific [place] 1.027 (1.000-1.030) 03/02/23 07:50 Urine Protein 1+ (Negative) H 03/02/23 07:50 Urine Glucose (UA) Negative (Negative) 03/02/23 07:50 Urine Ketones Negative (Negative) 03/02/23 07:50 Urine Nitrite Negative (Negative) 03/02/23 07:50 Ur Leukocyte Esterase Trace (Negative) H 03/02/23 07:50 Urine WBC (Auto) 0 /hpf (0-5) 03/02/23 07:50 Urine RBC (Auto) 0-4 /hpf (0-4) 03/02/23 07:50 U Hyaline Cast (Auto) 1-5 /lpf (0-5) 03/02/23 07:50 U Epithel Cells (Auto) 10-20 /lpf (0-5) H 03/02/23 07:50 Urine Bacteria (Auto) Negative (Negative) 03/02/23 07:50 03/02/23 08:10 POC Glucose (other) 114 H
[2023-03-02] MEDS ORDERED: KETOROLAC 30 MG/ML VIAL IV PRN ×2 (11:16→15:04)
[2023-03-02] MEDS ORDERED: PROMETHAZINE HCL 12.5 MG in SODIUM CHLORIDE 0.9% 50 ML IV PRN ×2 (11:16→15:04)
[2023-03-02] MEDS ORDERED: MEPERIDINE HCL 25 MG/ML CARP/VIAL IV PRN ×2 (11:16→13:20)
[2023-03-02] MEDS ORDERED: ATROPINE SULFATE 0.1 MG/ML 10ML SYR IV PRN (11:16)
[2023-03-02] MEDS ORDERED: ONDANSETRON INJ 2 MG/ML 2 ML VIAL IV PRN ×2 (11:16→15:04)
[2023-03-02] MEDS ORDERED: PROPOFOL IV EMULSION 10 MG/ML 20 ML VIAL IV ONE (11:41)
[2023-03-02] MEDS ORDERED: ROCURONIUM BROMIDE 10 MG/ML 5 ML VIAL IV ONE ×2 (11:41→11:42)
[2023-03-02] MEDS ORDERED: ONDANSETRON INJ 2 MG/ML 2 ML VIAL ONE (11:41)
[2023-03-02] MEDS ORDERED: DEXAMETHASONE SOD INJ 4 MG/ML VIAL ONE (11:41)
[2023-03-02] MEDS ORDERED: LIDOCAINE 2% MPF LOCAL 5 ML VIAL ONE (11:41)
[2023-03-02] MEDS ORDERED: HYDROmorphone INJ 2 MG/ML SYR/VIAL ONE ×3 (11:43→13:23)
[2023-03-02] MEDS ORDERED: SUGAMMADEX SODIUM 200 MG/2 ML VIAL IV ONE (11:56)
--- NOTE | 2023-03-02 12:47 | Post Operative Brief Note ---
Immediate Post Op Note v1 Date of Surgery March 02, 2023 Pre & Post Diagnosis Operation Date: 03/02/23 10:10 Pre-Op Diagnosis: ABDOMINAL PAIN, Post-Op Diagnosis: ABDOMINAL PAIN, I identified the patient and participated in the time-out.: Yes Procedure Operation Date: 03/02/23 10:10 Actual Procedures p Exploratory Laparotomy, Lysis of Adhesions, Extraction of (Not Applicable) - Darryl Chan MD Surgeon Darryl Chan MD Nurse Examiner none Estimated Blood Loss 10 Findings Consistent with Post-Op Diagnosis Drains Maza Catheter
--- NOTE | 2023-03-02 12:55 | Operative Report ---
Post Operative Report Pre & Post Diagnosis Operation Date: 03/02/23 10:10 Pre-Op Diagnosis: ABDOMINAL PAIN, Post-Op Diagnosis: ABDOMINAL PAIN, I identified the patient and participated in the time-out.: Yes Procedure Operation Date: 03/02/23 10:10 Actual Procedures p Exploratory Laparotomy, Lysis of Adhesions, Extraction of (Not Applicable) - Darryl Chan MD Surgeon Darryl Chan MD Revenue Tax Specialist none Estimated Blood Loss 10 Findings Consistent with Post-Op Diagnosis Inspissated mass of stool within the proximal ileum causing a high-grade small bowel obstruction. No significant inflammation or adhesive disease. The mass of inspissated stool was removed from the bowel through an enterotomy. Specimens None Drains None Anesthesia Type General Complications No immediate complications Description of Procedure Patient was taken to the operating room, placed supine on the operating table. A timeout was performed, perioperative antibiotics were ministered, SCD boots were placed. After adequate anesthesia and analgesia was obtained, the Maza catheter was placed and an NG tube was placed. Patient was then prepped and draped in the normal sterile fashion. A midline incision was made centered around the umbilicus with a 10 blade scalpel and carried down into the subcutaneous tissue. The fascia was entered at the level of the umbilicus, and the wound was opened to its fullest extent. The proximal bowel was significantly dilated. The bowel was eviscerated through the wound onto the anterior abdominal wall. The distal bowel was noted to be completely decompressed. No significant adhesive disease was identified. The bowel was run from the terminal ileum back towards the ligament of Treitz. In the proximal ileum, an area of obstruction was noted. There appeared to be a mass like lesion within the bowel at this point. Prior to this, the bowel was significantly distended. The bowel was run back to ligament of Treitz and no other area was noted to be abnormal. The area of obstruction was inspected. The masslike lesion in the bowel seem to be freely mobile and was milked down towards the terminal ileum. It reached a point in the mid to distal ileum where it would not pass. I elected to perform an enterotomy. A mass of inspissated pasty like stool material was removed at this location. Pieces of corn could be noted in the stool. This was removed and sent off the field. The enterotomy was closed in 2 layers at transverse fashion. The mucosa was closed with a running 3-0 Vicryl, and the seromuscular layer was closed with interrupted 3-0 silk sutures. Fluid was then milked from the ligament of Treitz down to the terminal ileum without any further area of obstruction. Fluid freely flowed into the distal bowel and into the colon. The bowel and abdominal cavity was inspected again. No further areas of concern were noted. The bowel was agree placed into the abdominal cavity. The abdomen was copiously irrigated suctioned free. Hemostasis was excellent. The fascia was closed with a #1 PDS running suture. The skin was closed with surgical clips. Dressings were applied. He tolerated the procedure without complication, was transferred in stable condition to the PACU. All instrument, needle, and sponge counts were correct at the end of the case. I attest to the content of the Intraoperative Record and any orders documented therein. Any exceptions are noted below.
[2023-03-02] MEDS: HYDROmorphone INJ 1 MG/ML SYRINGE IV PRN ×18 (12:56→22:47)
--- NOTE | 2023-03-02 14:24 | Anesthesiology Progress Note ---
Date of Service March 02, 2023 Anesthesia Post Procedure Vital Signs Vital Signs: Temp Pulse Pulse Resp BP BP Pulse Ox 03/02/23 14:15 97.7 F 91 H 13 124/66 95 03/02/23 14:05 98 H 15 128/66 97 03/02/23 13:55 94 H 15 125/78 98 03/02/23 13:45 88 14 137/79 98 03/02/23 13:35 94 H 15 138/92 100 03/02/23 13:25 85 15 138/92 99 03/02/23 13:15 82 14 153/96 H 100 03/02/23 13:05 80 17 167/94 H 100 03/02/23 12:55 81 17 142/81 H 100 03/02/23 12:49 97.9 F 79 17 139/81 100 03/02/23 10:48 98.2 F 93 H 18 144/74 H 94 03/02/23 10:31 78 18 150/82 H 98 03/02/23 09:44 80 18 135/72 94 03/02/23 09:13 78 18 100/79 96 03/02/23 08:36 78 18 144/71 H 93 03/02/23 07:43 97.9 F 86 18 115/80 98 O2 Del Method O2 Flow Rate 03/02/23 14:15 Nasal Cannula 2 03/02/23 14:05 Nasal Cannula 2 03/02/23 13:55 Nasal Cannula 2 03/02/23 13:45 Oxymask 2 03/02/23 13:35 Oxymask 2 03/02/23 13:25 Oxymask 2 03/02/23 13:15 Oxymask 3 03/02/23 13:05 Oxymask 5 03/02/23 12:55 Oxymask 5 03/02/23 12:49 Oxymask 5 03/02/23 10:48 Room Air 03/02/23 10:31 Room Air 03/02/23 09:44 Room Air 03/02/23 09:13 Room Air 03/02/23 08:36 Room Air 03/02/23 07:43 Pain Intensity Bilateral Abdomen: Pain Intensity: 9 Transfer of Care Handoff Completed per policy Notes Mental Status: alert / awake / arousable and participated in evaluation Patient Amnestic to Procedure: Yes Nausea / Vomiting: adequately controlled Pain: adequately controlled Airway Patency, RR, SpO2: stable & adequate BP & HR: stable & adequate Hydration State: stable & adequate Anesthetic Complications: no major complications apparent and Pt Satisfied with anesthetic care
[2023-03-02] MEDS ORDERED: diphenhydrAMINE 50 MG/ML VIAL IV PRN (15:04)
[2023-03-02] MEDS ORDERED: HYDROmorphone INJ 0.5 MG/0.5 ML SYR IV PRN (15:04)
[2023-03-02] MEDS ORDERED: ACETAMINOPHEN 1,000 MG/100 ML VIAL IV PRN (15:04)
[2023-03-02] MEDS: LACTATED RINGER'S 1,000 ML IV SCH ×2 (15:48→22:41)
[2023-03-02] MEDS ORDERED: NALOXONE HCL 0.4 MG/1 ML VIAL/CARP IV PRN (17:36)
[2023-03-02] MEDS: HYDROmorphone PCA 30 MG/30 ML IV PRN (18:31)
[2023-03-02] MEDS ORDERED: CHLORASEPTIC 1.4% SOLN 180 ML BTL MT PRN (22:12)
[2023-03-03] MEDS: HYDROmorphone INJ 1 MG/ML SYRINGE IV PRN ×9 (01:34→23:51)
[2023-03-03] MEDS: LACTATED RINGER'S 1,000 ML IV SCH ×3 (06:14→21:35)
[2023-03-03 06:22] LABS: BUN Creatinine Ratio 18.8 (10-20); Calcium 7.7 mg/dl (8.6-10.3); Creatinine Clr Calc Pharmacy 130.6 ml/min; Est GFR (African American) 118.2 ml/min; Potassium 4.1 mmol/L (3.5-5.1)
[2023-03-03 06:55] LABS: Basophils # (auto) 0.03 K/uL (0-0.2); Basophils % (auto) 0.2 %; Eosinophils # (auto) 0.05 K/uL (0-0.50); Eosinophils % (auto) 0.3 %; Hematocrit (blood only) 41.9 % (42.0-52.0); Hemoglobin 13.8 g/dl (14.0-18.0); Immature Granulocytes # (auto) 0.08 K/uL (0.01-0.20); Immature Granulocytes % (auto) 0.5 %; Lymphocytes # (auto) 1.18 K/uL (1.2-3.4); Lymphocytes % (auto) 7.3 %; Mean Corpuscular Hemoglobin 29.6 pg (25.0-34.0); Mean Corpuscular Hgb Conc 32.9 g/dL (32.0-36.0); Mean Corpuscular Volume 89.9 fL (80.0-100.0); Mean Platelet Volume 10.5 fL (9.4-12.4); Monocytes # (auto) 1.12 K/uL (0.11-0.59); Neutrophils # (auto) 13.65 K/uL (1.40-6.50); Neutrophils % (auto) 84.7 %; Platelet Count 201 K/uL (130-400); RDW Coefficient of Variation 12.8 % (11.5-14.5); Red Blood Count 4.66 M/uL (4.70-6.10); White Blood Count 16.11 K/ul (4.8-10.8)
--- NOTE | 2023-03-03 07:00 | XRay Report ---
KUB CLINICAL HISTORY: check ng position COMPARISON STUDY: CT of the abdomen and pelvis March 02, 2023. FINDINGS: Tip of nasogastric tube projects over the gastric cardia. The tube could be advanced an add itional 3 cm. Pneumoperitoneum is postsurgical. There are skin ronni from laparotomy. IMPRESSION: 1. Tip of nasogastric tube projects over the gastric cardia. The tube could be advanced 3 cm. 2. Pneumoperitoneum which is postsurgical. ACT 112: Negative or not required by law. Electronically signed by: Tyler Russell M.D. 03/03/2023 6:58 AM
[2023-03-03] MEDS: ENOXAPARIN INJ 40 MG/0.4 ML SYR SQ SCH (08:21)
[2023-03-03] MEDS: ACETAMINOPHEN 1,000 MG/100 ML VIAL IV SCH ×3 (08:34→23:52)
[2023-03-03] MEDS ORDERED: LORazepam 2 MG/1 ML VIAL IV PRN (11:37)
--- NOTE | 2023-03-03 13:54 | Surgery Progress Note ---
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 Will schedule IV Tylenol and can consider IV Toradol for moderate pain to see if better controls than breakthrough Dilaudid Will advance NGT 3 cm OOB to chair and ambulate discontinue Maza later this am Continue NGT to LIS, okay for ice chips sips of water abdominal binder possibly clamp trial later today since passing flatus repeat am labs Dr. Chan has seen patient and agrees with above. Admission and Anticipated Discharge Date Admission Date: March 02, 2023 Subjective moderate pain this am but better than last night sore throat and discomfort with tube down nose, feel like it might be slipping out again. No nausea or vomiting passing gas anxious about the tube and getting things removed (catheter in bladder) no chest pain or shortness of breath Physical Exam Constitutional: WD/WN, vitals as above cooperative and comfortable; no acute distress, not ill appearing and not combative Respiratory: normal respiratory effort; no respiratory distress, no labored breathing and no retractions Gastrointestinal (Abdomen): Inspection/Auscultation: abdomen normal to inspection and + abdominal surgical incision (dressing clean/dry/intact, incision not inspected today); abdomen not distended and + abnormal bowel sounds Percussion/Palpation: + abdomen tender (at midline incision and RLQ) and abdomen soft; no guarding, abdomen not rigid and abdomen not firm Skin: no rashes, warm and dry Psychiatric: Orientation: alert and oriented x 3 Affect: + anxious affect Results & Data Vital Signs (Past 12 Hours) Vital Signs Temp Pulse Resp BP Pulse Ox O2 Del Method 03/03/23 07:34 37.0 C 84 16 121/68 95 Room Air 03/03/23 03:35 36.6 C 88 16 136/68 97 Room Air Laboratory Results 03/03/23 03/03/23 Range/Units 05:50 05:50 WBC 16.11 H (4.8-10.8) K/ul RBC 4.66 L (4.70-6.10) M/uL Hgb 13.8 L D (14.0-18.0) g/dl Hct 41.9 L (42.0-52.0) % MCV 89.9 (80.0-100.0) fL MCH 29.6 (25.0-34.0) pg MCHC 32.9 (32.0-36.0) g/dL RDW Std Deviation 42.0 (36.4-46.3) fL RDW Coeff of Rafaela 12.8 (11.5-14.5) % Plt Count 201 (130-400) K/uL MPV 10.5 (9.4-12.4) fL Immature Gran % (Auto) 0.5 % Neut % (Auto) 84.7 % Lymph % (Auto) 7.3 % [place] % (Auto) 7.0 % Eos % (Auto) 0.3 % Baso % (Auto) 0.2 % Neut # (Auto) 13.65 H (1.40-6.50) K/uL Lymph # (Auto) 1.18 L (1.2-3.4) K/uL [place] # (Auto) 1.12 H (0.11-0.59) K/uL Eos # (Auto) 0.05 (0-0.50) K/uL Baso # (Auto) 0.03 (0-0.2) K/uL Immature Gran # (Auto) 0.08 (0.01-0.20) K/uL Sodium 137 (136-145) mmol/L Potassium 4.1 (3.5-5.1) mmol/L Chloride 102 (98-107) mmol/L Carbon Dioxide 29 (21-32) mmol/L Anion Gap 6 (3-11) BUN 18 (6-23) mg/dl Creatinine 0.96 (0.6-1.4) mg/dl Est Cr Clr Drug Dosing 130.6 ml/min Est GFR ( Amer) 118.2 ml/min Est GFR (Non-Af Amer) 102.0 ml/min BUN/Creatinine Ratio 18.8 (10-20) Glucose 96 (70-99(Fasting)) mg/dl Calcium 7.7 L D (8.6-10.3) mg/dl
[2023-03-03] MEDS: KETOROLAC 30 MG/ML VIAL IV PRN (14:26)
[2023-03-03] MEDS: PANTOprazole 40 MG in SYRINGE 0 ML IV SCH (16:03)
[2023-03-04] MEDS: HYDROmorphone INJ 1 MG/ML SYRINGE IV PRN ×6 (02:24→21:16)
[2023-03-04] MEDS: LACTATED RINGER'S 1,000 ML IV SCH ×2 (04:29→12:08)
[2023-03-04 06:47] LABS: Basophils # (auto) 0.03 K/uL (0-0.2); Basophils % (auto) 0.2 %; Eosinophils # (auto) 0.09 K/uL (0-0.50); Eosinophils % (auto) 0.7 %; Hematocrit (blood only) 37.8 % (42.0-52.0); Hemoglobin 12.7 g/dl (14.0-18.0); Immature Granulocytes % (auto) 0.8 %; Lymphocytes # (auto) 1.17 K/uL (1.2-3.4); Lymphocytes % (auto) 9.6 %; Mean Corpuscular Hgb Conc 33.6 g/dL (32.0-36.0); Mean Corpuscular Volume 89.4 fL (80.0-100.0); Mean Platelet Volume 10.6 fL (9.4-12.4); Monocytes # (auto) 0.87 K/uL (0.11-0.59); Monocytes % (auto) 7.1 %; Neutrophils # (auto) 9.96 K/uL (1.40-6.50); Neutrophils % (auto) 81.6 %; Platelet Count 180 K/uL (130-400); RDW Coefficient of Variation 12.2 % (11.5-14.5); RDW Standard Deviation 39.9 fL (36.4-46.3); Red Blood Count 4.23 M/uL (4.70-6.10); White Blood Count 12.22 K/ul (4.8-10.8)
[2023-03-04 06:57] LABS: BUN Creatinine Ratio 18.4 (10-20); Calcium 8.1 mg/dl (8.6-10.3); Creatinine Clr Calc Pharmacy 164.9 ml/min; Est GFR (Non-African American) 118.2 ml/min; Potassium 3.8 mmol/L (3.5-5.1)
[2023-03-04] MEDS: ACETAMINOPHEN 1,000 MG/100 ML VIAL IV SCH (08:09)
[2023-03-04] MEDS: ENOXAPARIN INJ 40 MG/0.4 ML SYR SQ SCH (08:09)
[2023-03-04] MEDS: KETOROLAC 30 MG/ML VIAL IV PRN (09:08)
[2023-03-04] MEDS: HYDROmorphone PCA 30 MG/30 ML IV PRN (09:19)
[2023-03-04] MEDS: PANTOprazole 40 MG in SYRINGE 0 ML IV SCH (10:04)
[2023-03-04] MEDS ORDERED: HYDROCODONE/ACETAMOPHEN 5/325MG TAB PO PRN (10:56)
[2023-03-04] MEDS ORDERED: ACETAMINOPHEN 325 MG TAB PO PRN (10:56)
--- NOTE | 2023-03-04 11:00 | Surgery Progress Note ---
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 Chan has seen patient and agrees with above. Admission and Anticipated Discharge Date Admission Date: March 02, 2023 Subjective feeling okay moderate pain last night, went 5 hours without pain medication mild nausea with pain but not persistent since NGT removed no chest pain or sob urinating without difficulty continues to pass flatus Physical Exam Constitutional: WD/WN, vitals as above cooperative and comfortable; no acute distress and not ill appearing Respiratory: normal respiratory effort; no respiratory distress Gastrointestinal (Abdomen): Inspection/Auscultation: abdomen normal to inspection, + abdominal surgical incision (clean/dry/intact, ronni intact) and + hypoactive bowel sounds; abdomen not distended and + abnormal bowel sounds Percussion/Palpation: + abdomen tender (RLQ and at midline laparotomy incision) and abdomen soft; no guarding and abdomen not rigid Skin: no rashes, warm and dry Psychiatric: A+Ox3, euthymic affect Results & Data Vital Signs (Past 12 Hours) Vital Signs Temp Pulse Pulse Resp BP BP Pulse Ox 03/04/23 07:52 37 C 78 16 142/90 H 97 03/04/23 03:28 36.9 C 87 16 152/77 H 97 03/03/23 23:44 37.5 C 87 18 162/94 H 99 O2 Del Method 03/04/23 07:52 Room Air 03/04/23 03:28 Room Air 03/03/23 23:44 Room Air Laboratory Results 03/04/23 03/04/23 Range/Units 05:51 05:51 WBC 12.22 H (4.8-10.8) K/ul RBC 4.23 L (4.70-6.10) M/uL Hgb 12.7 L (14.0-18.0) g/dl Hct 37.8 L (42.0-52.0) % MCV 89.4 (80.0-100.0) fL MCH 30.0 (25.0-34.0) pg MCHC 33.6 (32.0-36.0) g/dL RDW Std Deviation 39.9 (36.4-46.3) fL RDW Coeff of Rafael[place] 12.2 (11.5-14.5) % Plt Count 180 (130-400) K/uL MPV 10.6 (9.4-12.4) fL Immature Gran % (Auto) 0.8 % Neut % (Auto) 81.6 % Lymph % (Auto) 9.6 % [place] % (Auto) 7.1 % Eos % (Auto) 0.7 % Baso % (Auto) 0.2 % Neut # (Auto) 9.96 H (1.40-6.50) K/uL Lymph # (Auto) 1.17 L (1.2-3.4) K/uL [place] # (Auto) 0.87 H (0.11-0.59) K/uL Eos # (Auto) 0.09 (0-0.50) K/uL Baso # (Auto) 0.03 (0-0.2) K/uL Immature Gran # (Auto) 0.10 (0.01-0.20) K/uL Sodium 135 L (136-145) mmol/L Potassium 3.8 (3.5-5.1) mmol/L Chloride 103 (98-107) mmol/L Carbon Dioxide 25 (21-32) mmol/L Anion Gap 7 (3-11) BUN 14 (6-23) mg/dl Creatinine 0.76 (0.6-1.4) mg/dl Est Cr Clr Drug Dosing 164.9 ml/min Est GFR ( Amer) 137.0 ml/min Est GFR (Non-Af Amer) 118.2 ml/min BUN/Creatinine Ratio 18.4 (10-20) Glucose 83 (70-99(Fasting)) mg/dl Calcium 8.1 L (8.6-10.3) mg/dl
[2023-03-04] MEDS: HYDROCODONE/ACETAMOPHEN 5/325MG TAB PO PRN ×3 (13:03→22:20)
[2023-03-05] MEDS: HYDROmorphone INJ 1 MG/ML SYRINGE IV PRN ×3 (01:47→09:06)
[2023-03-05] MEDS: LACTATED RINGER'S 1,000 ML IV SCH (01:47)
[2023-03-05] MEDS: HYDROCODONE/ACETAMOPHEN 5/325MG TAB PO PRN ×5 (02:59→22:47)
--- NOTE | 2023-03-05 05:42 | Surgery Progress Note ---
Date of Service March 05, 2023 Assessment & Plan (1) Small bowel obstruction: Plan: Patient is status post exploratory laparotomy with enterotomy and removal of stool mass causing high-grade small bowel obstruction on 03/02/2023 (postop day #3) Continue analgesics Continue antiemetics Continue current diet for the present time. Consideration can be given to advancing diet if he continues to show clinical improvement Continue IV fluids until oral intake deemed to be adequate Encourage ambulation Lovenox is in place for DVT prevention Admission and Anticipated Discharge Date Admission Date: March 02, 2023 Supervising Physician Co-Signing Physician Notes Dr. Bandapatient seems to be tolerating clear liquids and had a bowel movement Pain seems to be controlled with [place] He is very anxious but appears to be pleasant We will advance to full liquids try to limit milk products Continue ambulation Possible DC home tomorrow if he progresses Subjective Patient is currently resting comfortably in bed. Since his surgery patient notes that he is passing flatus and has had multiple bowel movements. Last evening for dinner he had full liquids which he tolerated. He did note some minor nausea without any vomiting. Physical Exam Gastrointestinal (Abdomen): Bowel sounds are present. Abdomen is soft and nonrigid and nondistended. Surgical incision is clean, dry, and intact with ronni. Results & Data Vital Signs (Past 12 Hours) Vital Signs Temp Pulse Resp BP Pulse Ox O2 Del Method 03/04/23 22:20 Room Air 03/04/23 21:16 37.3 C 72 16 145/86 H 99 Room Air PG Care Time/CCT Total # of Minutes Spent Total Time Spent with Patient: Total time spent is greater than 50% in coordination of care (as documented) at patient's floor/unit and/or counseling patient: Coding Level of Care Code 31008 Post Operative Follow-Up Diagnoses Small bowel obstruction K56.609
[2023-03-05] MEDS: ENOXAPARIN INJ 40 MG/0.4 ML SYR SQ SCH (09:15)
[2023-03-05] MEDS: PANTOprazole 40 MG in SYRINGE 0 ML IV SCH (10:50)
[2023-03-05] MEDS: KETOROLAC 30 MG/ML VIAL IV PRN ×2 (17:38→23:56)
[2023-03-06] MEDS: HYDROmorphone INJ 1 MG/ML SYRINGE IV PRN (05:16)
--- NOTE | 2023-03-06 05:23 | Surgery Progress Note ---
Date of Service March 06, 2023 Assessment & Plan (1) Small bowel obstruction: Plan: Patient is status post exploratory laparotomy with enterotomy and removal of stool mass causing high-grade small bowel obstruction on 03/02/2023 (postop day #4) Continue analgesics Continue solid food this patient is tolerating this Encourage ambulation Likely discharge home later today Lovenox is in place for DVT prevention Admission and Anticipated Discharge Date Admission Date: March 02, 2023 Supervising Physician Co-Signing Physician Notes Dr. Bandapatient doing well- for discharge home today Subjective Patient is resting comfortably in bed and offers no complaints. He did have his diet advanced to solid food which he tolerated without worsening abdominal pain or nausea/vomiting. He says that his bowels have moved over the past 24 hours. He does not offer any other complaints Physical Exam Gastrointestinal (Abdomen): Abdomen is soft and nondistended. Patient does note some tenderness near his surgical incision with palpation. His incision is clean, dry, and intact with ronni. Results & Data Vital Signs (Past 12 Hours) Vital Signs Temp Pulse Resp BP Pulse Ox O2 Del Method 03/05/23 21:30 Room Air 03/05/23 21:55 37.2 C 51 L 16 138/85 99 Room Air PG Care Time/CCT Total # of Minutes Spent Total Time Spent with Patient: Total time spent is greater than 50% in coordination of care (as documented) at patient's floor/unit and/or counseling patient: Coding Level of Care Code 77756 Post Operative Follow-Up Diagnoses Small bowel obstruction K56.609
[2023-03-06] MEDS: HYDROCODONE/ACETAMOPHEN 5/325MG TAB PO PRN (06:41)
[2023-03-06] MEDS: ENOXAPARIN INJ 40 MG/0.4 ML SYR SQ SCH (07:51)
[2023-03-06] MEDS: KETOROLAC 30 MG/ML VIAL IV PRN (07:55)
--- NOTE | 2023-03-07 10:54 | Discharge Summary ---
Date of Service March 07, 2023 Admission HPI Per Admitting Provider 37-year-old gentleman presents with 24-hour history of severe abdominal pain centered around his periumbilical region. This was accompanied with nausea and vomiting. He denies any history of pain in this location previously. The pain has been worsening. It is sharp in character. He has had a prior open inguinal hernia repair. He denies fevers or chills. Last bowel movement was watery diarrhea yesterday. Denies passing flatus. CT scan demonstrates high-grade small bowel obstruction, possible soft tissue mass, possible internal hernia. Principal Diagnosis High grade small bowel obstruction Discharge Data Allergies Allergy/AdvReac Type Severity Reaction Status Date / Time bee venom protein (honey bee) Allergy SWELLING Unverified 03/02/23 09:39 cat dander Allergy Hives Unverified 03/02/23 09:33 dog dander Allergy Hives Unverified 03/02/23 09:33 morphine AdvReac Hives Unverified 03/02/23 09:33 oxycodone [From OxyContin] AdvReac Hives Unverified 03/02/23 09:33 Consultations 03/02/23 09:04 ED Decision to Admit Stat Procedures Performed Operation Date: 03/02/23 10:10 Actual Procedures p Exploratory Laparotomy, Lysis of Adhesions, Enterotomy with extraction of stool (Not Applicable) - Darryl Chan MD Ordered Studies 03/02/23 07:58 CT abd pelvis IV con only Stat Hospital Course (1) Small bowel obstruction: Patient was taken to operating room for exploratory laparotomy by Dr. Chan on 03/02/2023. He was found to have formed stool in the small bowel causing SBO. The stool was removed via enterotomy with primary repair. No bowel resection was required. Patient tolerated procedure and transferred to recovery then to medical/surgical floor for postoperative care. He was having severe postoperative pain in PACU so Dilaudid ADOBE DEVELOPER was ordered for postop pain managem ent. The evening of operative day patient was having breakthrough pain even with Dilaudid and IV Dilaudid was ordered for breakthrough. Pain was better controlled. POD # 1 avss, moderate postop pain, mild nausea due to pain. NGT with minimal output. Encouraged to ambulate. Passing flatus. NGT was clamped evening of POD # 1 and then removed. Diet advanced to clear liquids. POD # 2, avss, postop pain better controlled , oral pain medication was ordered which better controlled his pain. He had + bowel movement. Diet was advanced slowly and patient was eventually discharged home on POD # 4 in stable condition. Total Time Total Time Spent Total Time Spent (In Minutes): 60 minutes Discharge Plan Discharge Items Patient Disposition: Home - Self-Care Reason For Visit: BOWEL OBSTRUCTION Discharge Diagnosis: small bowel obstruction Activity: Per Instructions section Non-emergency contact: Primary Care Provider and Surgeon Call non-emergency contact if: you have any medication questions, your pain is not controlled, your pain is worsening, you have a fever, your temperature is above 101, your wound has increased redness, your wound has increased drainage and your wound pain has increased Follow-up/Referrals: Darryl Chan MD [Physician] - 03/11/ 11:15 am PCP,NO [Physician] - Diet: Low Fiber Addtl Attending Provider Instructions: Post-Surgical ~Discharge Instructions Activity Recommendations: - lifting limitation: (10 pounds for 6 weeks), - exercise/sex/sports limit: (nonstrenuous for 3 weeks and until cleared by surgeon), - driving or machine use limit: (none for 1 week or until pain free and no longer taking narcotic pain medication), - Shower/bathe limit: (may shower, no submerging incision underwater for 2 weeks) Diet: - Low fiber diet for 2 weeks SPECIAL CARE INSTRUCTIONS: - May shower. Let water run over area and pat dry. - Surgical ronni will be remove in office. - Call the surgeon's office with any questions or concerns - - (ex. temperature higher than 101 degrees F, excessive bleeding or pain). MEDICATIONS: - Resume previous medications unless instructed otherwise by your surgeon. - May alternate extra strength Tylenol and Ibuprofen as needed for mild to moderate pain -650 mg Tylenol every 6 hours as needed - Ibuprofen 600 mg every 6 hours as needed (take with food) - Hydrocodone 1 every 4 hours, as needed for moderate to severe pain (This had 350 mg of Tylenol in each tablet so be cautious if taking extra s trength Tylenol. DO NOT exceed 3,000 mg of Tylenol in 24 hour period) FOLLOW UP VISIT: - If not already scheduled, please call the office to schedule a one week follow-up appointment. Office number Pending Studies at Discharge: No Stand-Alone Forms: My [facility] [employer], Smoking Cessation Medications and DC Order Prescriptions: New hydrocodone-acetaminophen 5-325 mg tablet 1 tab PO Q4H PRN (Reason: pain) Qty: 18 0RF Discharge Orders: Discharge Order (Routine); Ordered 03/06/23 Ordered By: Eddie Brantley/Other Patient Handouts: Understanding Deep Vein Thrombosis, Small Bowel Obstruction, Low-Fiber Diet, DVT Post Op Prevention, Treating Constipation Admission Data Admit Date/Time: 03/02/23 13:05 Attending Provider: Darryl Chan Admit Provider: Darryl Chan Primary Care Provider: James Wright Other Providers: Darryl Chan Other Interventions: Discharge Summary Assessment (RN) Last Done: 03/06/23 08:12
== END 2023-03-06 08:57 | disposition home or self-care (01) | DRG 346 ==
LOC: ED 07:42 → OR 10:32 → 3W 13:05